=== PATIENT | female | born 1960 | race Hispanic/Latino ===

== ENCOUNTER → 2023-01-31 | Outpatient (CLI) | payer OTHER | LOC: MAMMO 10:16 | PROVIDERS: ATTEND Family Medicine | DX: Z12.31 Encounter for screening mammogram for malignant neoplasm of breast (principal); K76.0 Fatty (change of) liver, not elsewhere classified | CPT/HCPCS: 76705; 77067 ==

== ENCOUNTER → 2024-02-16 | Outpatient (REF) | payer OTHER | LOC: MAMMO 09:44 | PROVIDERS: ATTEND Family Medicine | DX: M81.0 Age-related osteoporosis without current pathological fracture (principal); Z12.31 Encounter for screening mammogram for malignant neoplasm of breast | CPT/HCPCS: 77067; 77080 ==